=== PATIENT | female | born 1990 | race Two or more races ===

== ENCOUNTER 2024-05-19 10:38 | Outpatient (CLI) | payer OTHER ==
[~2024-05-19 10:38] MED LIST: OSEL75CA PO; PEPCID20 MG PO; PRENATAL TABLE1 EAC1; TUSNEL LIQUID178 ML PO; ZOFRAN8 MG PO
== END 2024-05-19 10:58 | disposition home or self-care (01) ==
LOC: NST 10:38
PROVIDERS: ATTEND Obstetrics & Gynecology Gynecology
DX: Z34.82 Encounter for supervision of other normal pregnancy, second trimester (principal)

== ENCOUNTER → 2024-05-28 08:31 | Outpatient (CLI) | payer OTHER | END | disposition home or self-care (01) | LOC: LAB 08:31 | PROVIDERS: ATTEND Obstetrics & Gynecology | DX: Z34.83 Encounter for supervision of other normal pregnancy, third trimester (principal) ==

== ENCOUNTER 2024-06-25 22:54 | Outpatient (CLI) | payer OTHER ==
[~2024-06-25] VITALS: Ht 152.4 cm; Wt 90.7 kg
[2024-06-25 21:45] VITALS: BP 115/76
[2024-06-25] MEDS ORDERED: hydrOXYzine PAMOATE 50 MG CAPSULE PO ONE (23:00)
[2024-06-25] MEDS ORDERED: RINGERS SOLUTION,LACTATED 1,000 ML IV SCH (23:00)
[2024-06-25 23:10] VITALS: BP 112/72
[2024-06-26 03:25] VITALS: BP 98/59
[2024-06-26 07:10] VITALS: BP 95/60
[2024-06-26 11:25] VITALS: BP 121/72
== END 2024-06-26 11:29 | disposition home or self-care (01) ==
LOC: OBS/DEL 22:54
PROVIDERS: ATTEND Obstetrics & Gynecology
DX: O26.893 Other specified pregnancy related conditions, third trimester (principal); Z3A.32 32 weeks gestation of pregnancy

== ENCOUNTER 2024-08-04 09:15 | Inpatient (IN) | payer OTHER ==
[~2024-08-04] VITALS: Ht 152.4 cm; Wt 95.3 kg
[2024-08-04 12:12] LABS: INR < 0.93; PARTIAL THROMBOPLASTIN TIME 27.1 SECONDS (22.0-34.0); PROTHROMBIN TIME 10.2 SECONDS (9.0-11.5)
[2024-08-10] MEDS ORDERED: VANCOMYCIN HCL 1,000 MG VIAL IV SCH ×2 (06:00)
[2024-08-10 06:41] VITALS: BP 121/75; O2SAT 99
[2024-08-10 07:44] VITALS: BP 129/79; O2SAT 98
[2024-08-10] MEDS ORDERED: ERYTHROMYCIN BASE OPHT 1GM EACH TUBE OP ONE (07:45)
[2024-08-10] MEDS ORDERED: OXYTOCIN 10 UNITS/ML VIAL IV ONE (07:45)
[2024-08-10] MEDS ORDERED: MORPHINE SULFATE 4 MG/ML VIAL IV ONE ×2 (10:00→11:15)
[2024-08-10] MEDS ORDERED: CLINDAMYCIN PHOSPHATE 150 MG/ML (900mg) IV ONE (10:15)
[2024-08-10] MEDS ORDERED: MORPHINE SULFATE 4 MG/ML CARTRIDGE IV PRN (11:45)
[2024-08-10] MEDS ORDERED: RINGERS SOLUTION,LACTATED 1,000 ML IV SCH (11:45)
[2024-08-10] MEDS ORDERED: ONDANSETRON HCL 2 MG/ML VIAL IV SCH (12:00)
[2024-08-10] MEDS ORDERED: KETOROLAC TROMETHAMINE 30 MG VIAL IV SCH (12:00)
[2024-08-10] MEDS ORDERED: ACETAMINOPHEN 500 MG GEL..CAP PO SCH (12:00)
[2024-08-10] MEDS ORDERED: OXYTOCIN 1,000 ML IV ONE (12:00)
[2024-08-10] MEDS ORDERED: GABAPENTIN 300 MG CAPSULE PO SCH (17:00)
[2024-08-10] MEDS ORDERED: SIMETHICONE 125 MG CAPSULE PO SCH (17:00)
[2024-08-10 17:58] VITALS: BP 104/65
[2024-08-11 02:06] VITALS: BP 111/70
[2024-08-11 06:17] LABS: HEMATOCRIT 30.7 % (36.0-45.00); HEMOGLOBIN 10.6 g/dL (12.0-15.00); MEAN CELL VOLUME 85.7 fL (80.00-100.00); MEAN CORPUSCULAR HEMOGLOBIN 29.5 pg (27.00-32.0); MEAN CORPUSCULAR HGB CONC 34.4 g/dl (32.0-36.0); PLATELET COUNT 141 K/uL (150-450); RED BLOOD COUNT 3.58 M/uL (4.00-6.00); RED CELL DISTRIBUTION WIDTH 14.7 % (11.5-14.5)
[2024-08-11 08:00] VITALS: BP 113/71
[2024-08-11] MEDS ORDERED: KETOROLAC TROMETHAMINE 10 MG TABLET PO SCH (08:00)
[2024-08-11] MEDS ORDERED: OxyCODONE HCL 5 MG TABLET (ROXICODONE) PO PRN (08:00)
[2024-08-11] MEDS ORDERED: DOCUSATE SODIUM 100MG CAP PO SCH (09:00)
[2024-08-11 16:00] VITALS: BP 111/58
[2024-08-12 01:35] VITALS: BP 116/76
[2024-08-12 08:47] VITALS: BP 109/71
[2024-08-12 16:00] VITALS: BP 121/78
[2024-08-13 01:31] VITALS: BP 114/73
[2024-08-13 06:20] VITALS: BP 121/80
[2024-08-13 08:24] VITALS: BP 121/81
== END 2024-08-13 14:07 | disposition home or self-care (01) | DRG 785 ==
LOC: LDR 08-10 07:25 → OB/GYN 08-10 08:30 → O/R 08-10 10:24 → OB/GYN 08-10 14:34
PROVIDERS: Obstetrics & Gynecology; ADMIT Obstetrics & Gynecology Gynecology; ATTEND Obstetrics & Gynecology Gynecology
PROC: 0UB70ZZ Excision of Bilateral Fallopian Tubes, Open Approach (ICD-10-PCS; 2024-08-10)
PROC: 4A1HXCZ Monitoring of Products of Conception, Cardiac Rate, External Approach (ICD-10-PCS; 2024-08-10)
PROC: 10D00Z1 Extraction of Products of Conception, Low, Open Approach (ICD-10-PCS; principal; 2024-08-10 08:30)
DX: O34.211 Maternal care for low transverse scar from previous cesarean delivery (principal); Z30.2 Encounter for sterilization; Z37.0 Single live birth; Z3A.39 39 weeks gestation of pregnancy; Z20.822 Contact with and (suspected) exposure to COVID-19